=== PATIENT | female | born 2000 | race American Indian/Alaskan Native ===

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

== ENCOUNTER 2020-05-21 23:12 | Emergency (ER) | payer MEDICAID ==
[2020-05-21] MEDS ORDERED: ACETAMINOPHEN 325 MG TAB PO ONE (23:42)
[2020-05-21] MEDS ORDERED: FAMOTIDINE 20 MG TAB PO ONE (23:42)
--- NOTE | 2020-05-21 23:47 | Emergency Department Report ---
ED General Adult HPI - General Chief complaint: Chest Pain Stated complaint: chest wall pain PUI?: No Time Seen by Provider: 05/21/20 23:31 Source: patient, RN notes reviewed, old records reviewed Mode of arrival: Ambulatory Limitations: No Limitations - History of Present Illness Initial comments: The patient was evaluated in the emergency department for symptoms described in the history of present illness. He/she was evaluated in the context of the global COVID-19 pandemic, which necessitated consideration that the patient might be at risk for infection with the virus that causes COVID-19. Institutional protocols and algorithms that pertain to the evaluation of patients at risk for COVID-19 are in a state of rapid change based on information released by regulatory bodies including the CDC and federal and state organizations. These policies and algorithms were followed during the patient's care in the emergency department. Please note that these policies, procedures and recommendations changed on a rapid basis. During the history and physical examination, I am chaperoned by nurse Brittany Garcia This is a 20-year-old female. She is not known to myself previously. She reports that she is 20 weeks , 4, para 3. She denies chronic medical conditions. She states that she is following at [place] for her current , and reports no related complications. The patient presents to the ER today with a complaint of nontraumatic left-sided chest wall pain. The chest wall pain is intermittent. It does not radiate to the back, arms or neck. There is no vomiting, diaphoresis or exertional shortness of breath, and the pain is not pleuritic. She has been having this pain intermittently for the past few weeks. It increases with palpation, and occasionally with consumption of spicy foods. The patient denies headache, neck pain, abdominal pain, vomiting, hematemesis, urinary symptoms, abdominal cramping, leg pain, leg swelling, travel, surgery, immobilization, oral contraceptive use, and she denies a personal/family history of DVT and pulmonary embolism. She reports having had an an ultrasound on May 13 which was basically unremarkable. She has no other complaints. She also denies loss of taste and smell, and Covid symptomatology. She took Tylenol/acetaminophen ov [id number] at 6:00, with some improvement in symptoms. -: Gradual, days(s), week(s) Location: chest (Left-sided chest wall) Radiation: non-radiation Quality: aching Consistency: intermittent Improves with: medication, rest Worsens with: movement - Related Data Home Medications Medication Instructions Recorded Confirmed Last Taken Vitamin 1 tab PO DAILY 03/19/19 03/19/19 03/18/19 Previous Rx's Medication Instructions Recorded Last Taken Type Ferrous Sulfate [Feosol 325 MG tab] 325 mg PO BID #60 tablet 03/20/19 Unknown Rx Ibuprofen [Motrin 600 MG tab] 600 mg PO Q6H #30 tablet 03/20/19 Unknown Rx Vit-Fe Fumar-FA [ 1 each PO QDAY #30 tablet 03/20/19 Unknown Rx Vitamin] Allergies Allergy/AdvReac Type Severity Reaction Status Date / Time No Known Allergies Allergy Verified 06/25/18 11:19 ED Review of Systems ROS: Stated complaint: CHEST PAIN Other details as noted in HPI Constitutional: denies: fever, malaise, weakness Eyes: denies: eye discharge ENT: denies: congestion Respiratory: denies: cough, shortness of breath, SOB with exertion, SOB at rest, wheezing Cardiovascular: chest pain (Left-sided chest wall pain) Gastrointestinal: denies: abdominal pain, nausea, vomiting, hematemesis, melena, hematochezia Genitourinary: denies: dysuria Musculoskeletal: myalgia (Left-sided chest wall pain) Neurological: denies: weakness Hematological/Lymphatic: denies: easy bleeding ED Past Medical Hx - Past Medical History Hx Hypertension: No Hx Heart Attack/AMI: No Hx Congestive Heart Failure: No Hx Diabetes: No Hx Deep Vein Thrombosis: No Hx Liver Disease: No Hx Renal Disease: No Hx Sickle Cell Disease: No Hx Seizures: No Hx Asthma: No Hx COPD: No Hx HIV: No Additional medical history: Had a baby vaginal - Surgical History Hx Pacemaker: No Hx Internal Defibrillator: No Hx Cholecystectomy: Yes - Social History Smoking Status: Never Smoker - Medications Home Medications: Home Medications Medication Instructions Recorded Confirmed Last Taken Type Vitamin 1 tab PO DAILY 03/19/19 03/19/19 03/18/19 History Ferrous Sulfate [Feosol 325 MG tab] 325 mg PO BID #60 tablet 03/20/19 Unknown Rx Ibuprofen [Motrin 600 MG tab] 600 mg PO Q6H #30 tablet 03/20/19 Unknown Rx Vit-Fe Fumar-FA [ 1 each PO QDAY #30 tablet 03/20/19 Unknown Rx Vitamin] ED Physical Exam - General Limitations: No Limitations General appearance: alert, in no apparent distress - Head Head exam: Present: atraumatic, normocephalic - Eye Eye exam: Present: normal appearance, EOMI. Absent: nystagmus - ENT ENT exam: Present: normal exam, normal orophraynx, mucous membranes moist, normal external ear exam - Neck Neck exam: Present: normal inspection, full ROM. Absent: tenderness, meningismus - Respiratory Respiratory exam: Present: normal lung sounds bilaterally, chest wall tenderness. Absent: respiratory distress, wheezes, rales, rhonchi, stridor, decreased breath sounds - Cardiovascular Cardiovascular Exam: Present: regular rate, normal rhythm, normal heart sounds. Absent: bradycardia, tachycardia, irregular rhythm, systolic murmur, diastolic murmur, rubs, gallop - GI/Abdominal GI/Abdominal exam: Present: soft, other (Uterus is consistent with dates, nontender.). Absent: distended, tenderness, guarding, rebound, rigid, pulsatile mass - Extremities Exam Extremities exam: Present: normal inspection, full ROM, other (2+ pulses noted in the bilateral upper and lower extremities. There is no palpable cord. negative Homans sign. Muscular compartments are soft. The pelvis is stable.). Absent: pedal edema, calf tenderness - Back Exam Back exam: Present: normal inspection, full ROM. Absent: tenderness, CVA tenderness (R), CVA tenderness (L), paraspinal tenderness, vertebral tenderness - Neurological Exam Neurological exam: Present: alert, normal gait, other (No facial droop. Tongue midline. Extraocular movements intact bilaterally. Facial sensation intact to light touch in V1, V2, V3 distribution bilaterally. 5 and a 5 strength in 4 extremities. Sensation intact to light touch in 4 extremities.). Absent: motor sensory deficit - Psychiatric Psychiatric exam: Present: normal affect, normal mood - Skin Skin exam: Present: warm, dry, intact, normal color. Absent: rash ED Course Vital Signs 05/21/20 05/21/20 05/21/20 23:36 23:41 23:45 Temperature 98.6 F Pulse Rate 85 78 Respiratory 17 22 Rate Blood Pressure 101/60 O2 Sat by Pulse 100 99 Oximetry O2 Sat by Pulse Oximetry [ Digit-Finger] 05/22/20 05/22/20 00:01 00:11 Temperature Pulse Rate Respiratory 18 Rate Blood Pressure O2 Sat by Pulse Oximetry O2 Sat by Pulse 99 Oximetry [ Digit-Finger] - Reevaluation(s) Reevaluation #1: 05/22/20 01:03 Patient in no acute distress. Dozing comfortably in stretcher. Laboratory studies reviewed and appreciated. On reassessment endorses improvement in symptoms. Suitable for discharge with outpatient follow-up. Mild hypokalemia asymptomatic, we will provide oral supplementation here in the emergency room, she can follow-up with her outpatient [facility] for this. - Pulse Oximetry Interpretation Digit-Finger Initial Pulse Oximetry Readin O2 Sat by Pulse Oximetry: 99 Actions Taken: none ED Medical Decision Making - Lab Data Result diagrams: 05/21/20 23:51 05/21/20 23:51 Vital Signs 05/21/20 05/21/20 05/21/20 23:36 23:41 23:45 Temperature 98.6 F Pulse Rate 85 78 Respiratory 17 22 Rate Blood Pressure 101/60 O2 Sat by Pulse 100 99 Oximetry O2 Sat by Pulse Oximetry [ Digit-Finger] 05/21/20 05/22/20 23:54 00:01 Temperature Pulse Rate Respiratory 18 Rate Blood Pressure O2 Sat by Pulse Oximetry O2 Sat by Pulse 99 Oximetry [ Digit-Finger] Lab Results 05/21/20 05/21/20 05/21/20 Range/Units 23:51 23:51 23:51 WBC 9.3 (4.5-11.0) K/mm3 RBC 3.73 (3.65-5.03) M/mm3 Hgb 10.9 (10.1-14.3) gm/dl Hct 31.8 (30.3-42.9) % MCV 85 (79-97) fl MCH 29 (28-32) pg MCHC 34 (30-34) % RDW 13.6 (13.2-15.2) % Plt Count 135 L (140-440) K/mm3 PT 11.3 L (12.2-14.9) Sec. INR 0.84 L (0.87-1.13) Sodium 134 L (137-145) mmol/L Potassium 3.4 L (3.6-5.0) mmol/L Chloride 103.0 (98-107) mmol/L Carbon Dioxide 23 (22-30) mmol/L Anion Gap 11 mmol/L BUN 4 L (7-17) mg/dL Creatinine 0.4 L (0.6-1.2) mg/dL Estimated GFR > 60 ml/min BUN/Creatinine Ratio 10 % Glucose 112 H (65-100) mg/dL Calcium 8.5 (8.4-10.2) mg/dL Magnesium 1.90 (1.7-2.3) mg/dL Total Bilirubin < 0.20 (0.1-1.2) mg/dL AST 15 (5-40) units/L ALT 12 (7-56) units/L Alkaline Phosphatase 105 (35-129) units/L Total Creatine Kinase 117 (30-135) units/L Troponin T < 0.010 (0.00-0.029) ng/mL Total Protein 6.4 (6.3-8.2) g/dL Albumin 3.3 L (3.9-5) g/dL Albumin/Globulin Ratio 1.1 % - EKG Data -: EKG Interpreted by Co EKG shows normal: sinus rhythm Rate: normal - EKG Data When compared to previous EKG there are: no significant change Interpretation: unchanged when compared t 05/21/20 23:48 Time of interpretation, 23: 24 PM Unchanged when compared to prior EKG from June 21, 2018. Sinus rhythm, 66 bpm. Normal axis, normal intervals. Unremarkable EKG. Not a STEMI. High left ventricular voltage appears to have resolved. - Medical Decision Making Differential diagnosis, including but not limited to: Costochondritis, GERD, gastritis, hiatal hernia, incidental Assessment and plan: 20-year-old female, who is not currently tachycardic, tachypneic or hypoxic, denies travel, surgery, immobilization, leg pain or leg swelling, without a personal or family history of DVT, pulmonary embolism, coronary artery disease, with left-sided chest pain. The chest pain is reproducible, and worsened with palpation, and occasionally when eating heavy and spicy foods. Her EKG today is unchanged from prior, and she has been endorsing this intermittent chest discomfort for the past few weeks. Her status is reviewed and appreciated, but otherwise given her vital signs, history, reproducibility, I do not clinically suspect a pulmonary embolism at this time, I do not see indication for further risk stratification outside the history and physical examination. D-dimer is likely to be falsely elevated, and since I do not suspect a pulmonary embolism, would not place patient in Wells criteria algorithm. Patient counseled appropriately. Patient at low risk for major adverse cardiac event, assuming negative troponin x1 which we anticipate, patient symptoms have been present for over 24 hours, therefore, assuming negative troponin, acute renetta cardial infarction is excluded, as per the [employer] clinical policy. Patient low risk by heart score. Patient reports having had an ultrasound within the past week, which was unremarkable, nursing team to provide analgesia, appropriate for , and will also obtain heart tones. Critical care attestation.: If time is entered above; I have spent that time in minutes in the direct care of this critically ill patient, excluding procedure time. ED Disposition Clinical Impression: Chest wall pain Qualifiers: Weeks of gestation: unspecified Qualified Code(s): Z34.90 - Encounter for supervision of normal , unspecified, unspecified trimester Disposition: TO HOME OR SELFCARE Is pt being admited?: No Does the pt Need Aspirin: No Condition: Good Instructions: Costochondritis Additional Instructions: Please continue current outpatient medications. Patient may take Tylenol/acetaminophen, 650 mg by mouth, every 4-6 hours as needed for pain, alternating with Pepcid/famotidine, 20 mg by mouth, every 12-24 hours. Maximum daily dose of Tylenol/acetaminophen to not exceed 3 g per 24 hours. Avoid consumption of heavy and spicy foods. Please follow-up with your primary care doctor or your [facility] doctor within the next 3 to 5 days. Patient may alternate ice packs and heat packs as needed to the chest wall for pain. Please return to the emergency room right away with new pain, worsened pain, migration of pain, projectile vomiting, change in mental status, confusion, inability to tolerate liquid feeds, new, worsened or different symptoms not present on the initial emergency room evaluation. Referrals: JANNETTE VELIZ MD [Staff Physician] - 3-5 Days [facility] [Provider Group] - 3-5 Days Forms: Work/School Release Form(ED) Heart Score - HEART Score History: Slightly suspicious EKG: Normal Age: < 45 Risk factors: 1-2 risk factors Troponin: < normal limit HEART Score: 1 - Critical Actions Critical Actions: 0-3 pts:0.9-1.7%risk of adverse cardiac event.Candidate for discharge
[2020-05-21 23:54] VITALS: BP 101/60
[2020-05-22 00:08] LABS: Hematocrit 31.8 % (30.3-42.9); Hemoglobin 10.9 gm/dl (10.1-14.3); Mean Corpuscular HGB Conc 34 % (30-34); Mean Corpuscular Volume 85 fl (79-97); Platelet Count 135 K/mm3 (140-440); Red Blood Count 3.73 M/mm3 (3.65-5.03); Red Cell Distribution Width 13.6 % (13.2-15.2)
[2020-05-22 00:19] LABS: INR 0.84 (0.87-1.13)
[2020-05-22 00:29] LABS: Alanine Aminotransferase 12 units/L (7-56); Albumin 3.3 g/dL (3.9-5); Blood Urea Nitrogen 4 mg/dL (7-17); Calcium 8.5 mg/dL (8.4-10.2); Hemolysis Index 2
[2020-05-22 00:57] LABS: BUN/Creatinine Ratio 10
[2020-05-22] MEDS ORDERED: POTASSIUM CHLORIDE ER 20 MEQ TAB PO ONE (01:02)
--- NOTE | 2020-05-23 11:15 | Electrocardiograph Report ---
[facility] Test Date: 2020-05-21 Test Time: 23:24:50 Pat Name: TIMOTHY POLK Department: Room: Gender: F Rn Travel: EM : 2000 Requested By: TRAMAINE ESTEVES Order Number: [id number] Reading MD: Saturnino Paulino Measurements Intervals [place] Rate: 86 P: 50 [place]: 143 QRS: 29 QRSD: 76 T: 27 QT: 356 QTc: 427 Interpretive Statements Sinus rhythm No previous ECG available for comparison Electronically Signed On 05-23-2020 8:14:52 PDT by Saturnino Paulino
== END 2020-05-22 01:25 | disposition home or self-care (01) ==
LOC: ED 23:12
DX: O26.899 Other specified pregnancy related conditions, unspecified trimester (principal); R07.89 Other chest pain; Z90.49 Acquired absence of other specified parts of digestive tract; Z79.899 Other long term (current) drug therapy; Z3A.00 Weeks of gestation of pregnancy not specified
CPT/HCPCS: 36415; 80053; 82550; 83735; 84484; 85027; 85610; 93005; 99283

== ENCOUNTER 2020-07-14 21:08 | Emergency (ER) | payer MEDICAID ==
[2020-07-14 21:51] VITALS: BP 100/63
--- NOTE | 2020-07-14 22:47 | XRay Report ---
LEFT ANKLE 3 VIEWS INDICATION / CLINICAL INFORMATION: Left ankle pain and swelling. COMPARISON: None available. FINDINGS: BONES and JOINT(S): No acute fracture or subluxation. No significant arthritis. SOFT TISSUES: There is mild lateral edema without other significant abnormalities. ADDITIONAL FINDINGS: None. IMPRESSION: Mild left ankle edema without an acute osseous abnormality. Signer Name: Jarad Corbin MD Signed: 07/14/2020 10:42 PM Workstation Name: [id number]
--- NOTE | 2020-07-15 00:15 | Emergency Department Report ---
ED Lower Extremity HPI - General Chief Complaint: Extremity Injury, Lower Stated Complaint: ANKLE INJURY Time Seen by Provider: 07/15/20 00:07 Source: patient Mode of arrival: Ambulatory Limitations: No Limitations - History of Present Illness MD Complaint: ankle injury -: Sudden, Last night Injury: Ankle: Left Type of Injury: inversion Place: home Severity: mild, moderate Context: fall (Accidentally slipped on third 6 steps rolling her ankle causing pain and swelling) Associated Symptoms: swelling, able to partially bear weight - Related Data Home Medications Medication Instructions Recorded Confirmed Last Taken Vitamin 1 tab PO DAILY 03/19/19 03/19/19 03/18/19 Previous Rx's Medication Instructions Recorded Last Taken Type Ferrous Sulfate [Feosol 325 MG tab] 325 mg PO BID #60 tablet 03/20/19 Unknown Rx Ibuprofen [Motrin 600 MG tab] 600 mg PO Q6H #30 tablet 03/20/19 Unknown Rx Vit-Fe Fumar-FA [ 1 each PO QDAY #30 tablet 03/20/19 Unknown Rx Vitamin] Allergies Allergy/AdvReac Type Severity Reaction Status Date / Time No Known Allergies Allergy Verified 06/25/18 11:19 ED Review of Systems ROS: Stated complaint: ANKLE INJURY Other details as noted in HPI Comment: All other systems reviewed and negative ED Past Medical Hx - Past Medical History Previous Medical History?: No Hx Hypertension: No Hx Heart Attack/AMI: No Hx Congestive Heart Failure: No Hx Diabetes: No Hx Deep Vein Thrombosis: No Hx Liver Disease: No Hx Renal Disease: No Hx Sickle Cell Disease: No Hx Seizures: No Hx Asthma: No Hx COPD: No Hx HIV: No Additional medical history: Had a baby vaginal - Surgical History Past Surgical History?: Yes Hx Pacemaker: No Hx Internal Defibrillator: No Hx Cholecystectomy: Yes - Social History Smoking Status: Former Smoker Substance Use Type: None - Medications Home Medications: Home Medications Medication Instructions Recorded Confirmed Last Taken Type Vitamin 1 tab PO DAILY 03/19/19 03/19/19 03/18/19 History Ferrous Sulfate [Feosol 325 MG tab] 325 mg PO BID #60 tablet 03/20/19 Unknown Rx Ibuprofen [Motrin 600 MG tab] 600 mg PO Q6H #30 tablet 03/20/19 Unknown Rx Vit-Fe Fumar-FA [ 1 each PO QDAY #30 tablet 03/20/19 Unknown Rx Vitamin] ED Physical Exam - General Limitations: No Limitations General appearance: alert, in no apparent distress - Head Head exam: Present: atraumatic, normocephalic - Eye Eye exam: Present: normal appearance - ENT ENT exam: Present: mucous membranes moist - Neck Neck exam: Present: normal inspection - Respiratory Respiratory exam: Present: normal lung sounds bilaterally. Absent: respiratory distress - Cardiovascular Cardiovascular Exam: Present: regular rate, normal rhythm. Absent: systolic murmur, diastolic murmur, rubs, gallop - GI/Abdominal GI/Abdominal exam: Present: soft, normal bowel sounds - Extremities Exam Extremities exam: Present: normal inspection, tenderness (Along the anterior talofibular ligament of left ankle. Drawer test is negative. Pulses 2+ capillary refills are brisk. No tenderness to the proximal fibula) - Back Exam Back exam: Present: normal inspection. Absent: CVA tenderness (R), CVA tenderness (L), paraspinal tenderness - Neurological Exam Neurological exam: Present: alert, oriented X3, CN II-XII intact, normal gait - Psychiatric Psychiatric exam: Present: normal affect, normal mood - Skin Skin exam: Present: warm, dry, intact, normal color. Absent: rash ED Course Vital Signs 07/14/20 21:44 Temperature 98.5 F Pulse Rate 77 Respiratory 16 Rate Blood Pressure 100/63 O2 Sat by Pulse 97 Oximetry ED Lower Extremity MDM - Radiology Data Radiology results: [place] [address] XRay Report Signed Patient: TIMOTHY POLK MR#: [id number] : 2000 Acct:[id number] Age/Sex: 20 / F ADM Date: 07/14/20 Loc: ED Attending Dr: Ordering Physician: KATARINA DIAZ MD Date of Service: 07/14/20 Procedure(s): XR ankle 3+V LT Accession Number(s): [id number] cc: ED MD JOE Fluoro Time In Minutes: LEFT ANKLE 3 VIEWS INDICATION / CLINICAL INFORMATION: Left ankle pain and swelling. COMPARISON: None available. FINDINGS: BONES and JOINT(S): No acute fracture or subluxation. No significant arthritis. SOFT TISSUES: There is mild lateral edema without other significant abnormalities. ADDITIONAL FINDINGS: None. IMPRESSION: Mild left ankle edema without an acute osseous abnormality. Signer Name: Jarad Corbin MD Signed: 07/14/2020 10:42 PM Workstation Name: [id number] Transcribed By: [place] Dictated By: Jarad Corbin MD Electronically Authenticated By: Jarad Corbin MD Signed Date/Time: 07/14/202241 DD/ 40 TD/TT: Print Cancel Critical care attestation.: If time is entered above; I have spent that time in minutes in the direct care of this critically ill patient, excluding procedure time. ED Disposition Clinical Impression: Ankle sprain Disposition: DC- TO HOME OR SELFCARE Is pt being admited?: No Does the pt Need Aspirin: No Condition: Stable Instructions: How to Use a Stirrup Ankle Brace, [id number], Ankle Sprain, Phase I Rehab-SportsMed, Ankle Sprain, Elastic Bandage and RICE Therapy, How to Use a Stirrup Ankle Brace Additional Instructions: Use Tylenol or Motrin as needed for pain Referrals: [facility] MD KUSH [Primary Care Provider] - 3-5 Days ESTHER CARLSON MD [Staff Physician] - 3-5 Days
== END 2020-07-15 00:52 | disposition home or self-care (01) ==
LOC: ED 21:08
DX: S93.402A Sprain of unspecified ligament of left ankle, initial encounter (principal); Z90.49 Acquired absence of other specified parts of digestive tract; Z79.899 Other long term (current) drug therapy; W01.0XXA Fall on same level from slipping, tripping and stumbling without subsequent striking against object, initial encounter; Y93.89 Activity, other specified; Y92.89 Other specified places as the place of occurrence of the external cause; Y99.8 Other external cause status